=== PATIENT | female | born 2000 | race Caucasian/White ===

== ENCOUNTER 2019-03-16 12:04 | Emergency (ER) | payer BC ==
[~2019-03-16] VITALS: Ht 167.6 cm; Wt 65.0 kg
[2019-03-16 12:25] VITALS: BP 119/77
--- NOTE | 2019-03-16 13:55 | NUR ---
pt stated that she want to wait for her friend to give her psychological support while doing swab culture,pt requested to wait for 5 min to collect throat swab,as her friend is on her way .
[2019-03-16 14:44] LABS: MONOTEST POSITIVE (Neg)
== END 2019-03-16 15:09 | disposition home or self-care (01) ==
LOC: ER 12:05
DX: B27.90 Infectious mononucleosis, unspecified without complication (principal)
CPT/HCPCS: 36415; 86308; 87081; 87880; 99283